=== PATIENT | female | born 1960 | race Caucasian/White ===

== ENCOUNTER 2025-01-23 15:27 | Emergency (ER) | payer BC, MEDICAID, OTHER ==
[~2025-01-23] VITALS: Ht 167.6 cm; Wt 68.0 kg
[2025-01-23 15:32] VITALS: TEMP 36.8; O2SAT 96
[2025-01-23] MEDS: ACETAMINOPHEN 325MG TABLET PO ONE (16:34)
[2025-01-23] MEDS ORDERED: IBUP-1455 MT (16:51)
[2025-01-23] MEDS ORDERED: CYCL10TA21 MT (16:52)
[2025-01-23 17:07] VITALS: BP 174/98; PULSE 89; RESP 18; O2SAT 100
== END 2025-01-23 17:10 | disposition home or self-care (01) ==
LOC: ER 15:27
DX: R07.89 Other chest pain (principal); F41.9 Anxiety disorder, unspecified; Z98.890 Other specified postprocedural states; V89.2XXA Person injured in unspecified motor-vehicle accident, traffic, initial encounter; Y93.89 Activity, other specified; Y92.89 Other specified places as the place of occurrence of the external cause; Y99.8 Other external cause status
CPT/HCPCS: 71045; 93005; 99283